=== PATIENT | female | born 1985 | race Caucasian/White ===

== ENCOUNTER 2017-02-07 07:51 | Inpatient (IN) | payer BC ==
[~2017-02-07 07:51] MED LIST: Carboprost Tromethamine 250 MCG/1 ML Amp IM PRN; Lactated Ringers 1,000 ML IV SCH; Lactated Ringers 500 ML IV ONE; Methylergonovine 0.2 MG/1 ML Amp IM PRN; Misoprostol 400 MCG (4 X 100 MCG TAB) RECTAL PRN; Ondansetron 4 MG/2 ML SDV IV PRN; Oxytocin/Normal Saline 30 UNIT/500 ML BAG IV SCH; Sodium Chloride 0.9% 10 ML Syringe FLUSH PRN
[2017-02-07] MEDS ORDERED: Misoprostol 25 MCG (1/4 of 100 MCG) Tab VAG PRN (08:00)
[2017-02-07] MEDS ORDERED: Misoprostol 50 MCG (1/2 of 100 MCG) Tab VAG PRN (09:20)
[2017-02-07] MEDS ORDERED: fentaNYL 100 MCG/2 ML SDV ITHECAL ONE (12:44)
[2017-02-07] MEDS ORDERED: Oxytocin/Normal Saline 30 UNIT/500 ML BAG IV SCH (13:30)
--- NOTE | 2017-02-07 13:30 | PCM.SN ---
- Free Text/Narrative Note: DOS: 02-07-17 Progress note: 1315 Sweetie doing well feeling cxns stronger. baby active. denies LOF or bleeding. FHTs reassuring. cervix 4cm vertex firmly applied and has come down to -1st 75%effaced cervix tightens to vertex and 4-5 with cxn BOW easily felt and AROM carried out with return of clear fluid. Will continue to monitor closely. Will start pitocin drip to optimize contraction pattern for effective labor. All questions answered. hmb
[2017-02-07] MEDS ORDERED: fentaNYL 100 MCG/2 ML SDV ONE (14:20)
[2017-02-07] MEDS ORDERED: ePHEDrine 50 MG/ML SDV ONE (14:53)
--- NOTE | 2017-02-07 15:09 | PCM.SN ---
- Free Text/Narrative Note: Called to provide labor pain relief to this patient via intrathecal. After consent signed, monitors on, proceeded. With patient in sitting position, sterile prep/drape. Skin wheal at L3-4 with 1% Lido. LP X 1 at L3-4 with 25g pencan spinal needle. positive, free flowing, clear CSF. No heme, transient paresthesia down left leg that resolved with needle reposition, but unable to aspirate CSF. After attempting to move needle to enable aspiration of CSF unsuccessfully, decided to inject because CSF was flowing well. Then injected 20mcg sufenta, 30mcg fentanyl, 6mg mpf HB spinal 0.75%marcaine, 0.4ml preservative free saline with epi wash intrathecal. Pt reported pain relief with subsequent contractions. Except for transient drop in FHT's (resoved after ephedrine obtained, but none was given), both FHT's and maternal B/P remained stable.
[2017-02-07] MEDS ORDERED: Benzocaine/Menthol 20%-0.5% Spray 56 GM Canister TOP PRN (16:16)
[2017-02-07] MEDS ORDERED: Simethicone 80 MG Tab.Chew PO PRN (16:16)
[2017-02-07] MEDS ORDERED: Zolpidem 5 MG Tab PO PRN (16:16)
--- NOTE | 2017-02-07 18:00 | PCM.DEL ---
L & D Note - General Info Date of Service: 02/07/17 (time of delivery 1557) Mother's Due Date: 02/14/17 - Delivery Note Labor: augmented by ARM, augmented by oxytocin Other Cervical Ripening Method: Cytotec 50mcg Delivery Outcome: Livebirth Infant Delivery Method: Spontaneous Vaginal Delivery Delivery Mode: Vacuum Extraction Presentation: Left Occiput Anterior (TAURUS) Nuchal Cord: Present, Reduced (X 1 loose, with hand grasped tightly around it) Prep: Povidone-Iodine (Betadine Anesthesia Type: Intrathecal Amniotic Fluid Description: Clear Episiotomy Type: None Laceration: none Placenta: intact, expressed Cord: 3 vessels Estimated Blood Loss: 150 Resuscitation Needed: No : Suctioned, Bulb Syringe, Stimulated, [place] Used (to mom skin to skin) Provider: Jessica Gonzalez Score 1 min: 8 Score 5 min: 8 Vacuum Extractor Progress Note - Alternative Labor Strategies Considered Alternative labor strategies considered:: Reports: yes Strategies considered:: Reports: Contraction intensity adequate, Position changes used to facilitate rotation & descent, Empty bladder Indications considered:: Reports: yes Indications:: Reports: Shortening of 2nd stage for maternal benefit, Suspicion of immediate or potential compromise Time out:: Reports: yes (time of informed consent 0764. [facility]) - Patient Prepared Patient prepared:: Reports: yes Informed consent:: Reports: Yes, Verbal Risks: Reports: yes Risks include:: Reports: Laceration, Shoulder dystocia, Maternal injury Anesthesia/analgesia adequate:: Reports: yes - Probability of Success High probability of success:: Reports: yes weight estimated:: Reports: AGA Patient diabetic:: Reports: no Pelvis adequate:: Reports: yes Position:: cephalic, TAURUS Asynclitic:: Reports: no Station:: +3 - Application Time Maximum application time & number of pop-offs predetermined:: Reports: yes Total application time (min): *max=20min: 1 (40secs) Number of times cup disengaged:: 0 Type of vacuum used:: Reports: Cup: Moore type Vacuum Extraction: Successful - Exit Strategy Exit strategy available:: Reports: yes and resuscitation teams readily available:: Reports: yes Consult as indicated:: not necessary - General Info Functional Status: Reports: pain controlled - Review of Systems General: Reports: No Symptoms HEENT: Reports: no symptoms Pulmonary: Reports: no symptoms Cardiovascular: Reports: No Symptoms Gastrointestinal: Reports: No symptoms Genitourinary: Reports: no symptoms Musculoskeletal: Reports: no symptoms Skin: Reports: no symptoms Neurological: Reports: No Symptoms Psychiatric: Reports: no symptoms - Patient Data Weight - most recent: 163 lb Lab Results last 24 hrs: Laboratory Results - last 24 hr 02/07/17 Range/Units 08:10 WBC 16.0 H (5.0-10.0) 10^3/uL RBC 4.06 L (4.2-5.4) 10^6/uL Hgb 12.0 (12.0-16.0) g/dL Hct 35.9 L (37.0-47.0) % MCV 88.4 (80-100) fL MCH 29.6 (27.0-34.0) pg MCHC 33.4 (33.0-35.0) g/dL Plt Count 168 (150-450) 10^3/uL Med Orders - Current: Current Medications Acetaminophen (Tylenol) 650 mg PO Q4H PRN PRN Reason: Pain/Fever Benzocaine/Menthol (Dermoplast Pain Relief Higgins) 0 gm TOP Q4H PRN PRN Reason: Perineal comfort measures Carboprost Tromethamine (Hemabate Ds) 250 mcg IM ASDIRECTED PRN PRN Reason: HEMORRHAGE Docusate Sodium (Colace) 100 mg PO BID PRN PRN Reason: Constipation Lactated Ringer's (Ringers, Lactated) 1,000 mls @ 125 mls/hr IV ASDIRECTED LIZZY Last Admin: 02/07/17 14:17 Dose: 125 mls/hr Oxytocin/Sodium Chloride (Pitocin In Ns 30 Unit/500 Ml) 30 unit in 500 mls @ 500 mls/hr IV TITRATE LIZZY PRN Reason: Protocol Oxytocin/Sodium Chloride (Pitocin In Ns 30 Unit/500 Ml) 30 unit in 500 mls @ 2 mls/hr IV TITRATE LIZZY; 2 MUNITS/MIN PRN Reason: Protocol Last Admin: 02/07/17 13:57 Dose: 2 munits/min, 2 mls/hr Ibuprofen (Motrin) 800 mg PO Q8H PRN PRN Reason: Mild Pain or Fever Lidocaine HCl (Xylocaine-Mpf 1%) 30 ml INJECT ASDIRECTED PRN PRN Reason: Perineal Repair Methylergonovine Maleate (Methergine) 0.2 mg IM ASDIRECTED PRN PRN Reason: Hemorrhage Misoprostol (Cytotec) 800 mcg RECTAL ASDIRECTED PRN PRN Reason: Hemorrhage Misoprostol (Cytotec) 50 mcg VAG Q4H PRN PRN Reason: cervical ripening Last Admin: 02/07/17 09:36 Dose: 50 mcg Ondansetron HCl (Zofran) 4 mg IV Q4H PRN PRN Reason: Nausea/Vomiting Last Admin: 02/07/17 14:10 Dose: 4 mg Prenat Multivit/Blending Machine Feeder/Iron/Folic Ac ( Plus Iron) 1 each PO DAILY LIZZY Simethicone (Simethicone) 80 mg PO Q4H PRN PRN Reason: Gas Sodium Chloride (Saline Flush) 10 ml FLUSH ASDIRECTED PRN PRN Reason: Keep Vein Open Zolpidem Tartrate (Ambien) 5 mg PO BEDTIME PRN PRN Reason: Insomnia Stop: 02/07/17 21:01 Discontinued Medications Ephedrine Sulfate (Ephedrine Sulfate) Confirm Administered Dose 50 mg .ROUTE .STK-MED ONE Stop: 02/07/17 14:54 Fentanyl (Sublimaze) Confirm Administered Dose 100 mcg .ROUTE .STK-MED ONE Stop: 02/07/17 14:21 Lactated Ringer's (Ringers, Lactated) 500 mls @ 500 mls/hr IV .BOLUS ONE Stop: 02/07/17 00:19 Last Admin: 02/07/17 13:58 Dose: 500 mls/hr Misoprostol (Cytotec) 50 mcg VAG Q4H PRN PRN Reason: cervical ripening Stop: 02/07/17 08:01 Sufentanil Citrate (Sufenta) Confirm Administered Dose 50 mcg .ROUTE .STK-MED ONE Stop: 02/07/17 14:22 - Problem List Review Problem List Initiated/Reviewed/Updated: Yes - My Orders Last 24 Hours: My Active Orders 02/06/17 23:00 Communication Order [RC] ASDIRECTED Communication Order [RC] ASDIRECTED Communication Order [RC] ASDIRECTED Communication Order [RC] ASDIRECTED Communication Order [RC] ASDIRECTED Notify Provider Vital Signs OB [RC] ASDIRECTED Notify Provider [RC] PRN Notify Provider [RC] PRN Notify Provider [RC] STAT Up ad Corazon [RC] PER UNIT ROUTINE Vaginal Exam [RC] PRN Vital Signs [RC] PER UNIT ROUTINE Acetaminophen [Tylenol] 650 mg PO Q4H PRN Sodium Chloride 0.9% [Saline Flush] 10 ml FLUSH ASDIRECTED PRN 02/06/17 23:04 Peripheral IV Care [RC] . DIRECTED 02/06/17 23:20 Carboprost Tromethamine [Hemabate DS] 250 mcg IM ASDIRECTED PRN Methylergonovine [Methergine] 0.2 mg IM ASDIRECTED PRN Misoprostol [Cytotec] 800 mcg RECTAL ASDIRECTED PRN Ondansetron [Zofran] 4 mg IV Q4H PRN Resuscitation Status Routine 02/06/17 23:21 Communication Order [RC] ASDIRECTED Notify Provider [RC] PRN 02/06/17 23:24 Pump Management, Intrathecal [RC] ASDIRECTED 02/07/17 07:00 Patient Status [ADT] Routine Lactated Ringers [Ringers, Lactated] 1,000 ml IV ASDIRECTED Oxytocin/Normal Saline [Pitocin in NS 30 UNIT/500 ML] 30 unit in 500 ml IV TITRATE Peripheral IV Insertion Adult [OM.PC] Routine 02/07/17 09:20 Misoprostol [Cytotec] 50 mcg VAG Q4H PRN 02/07/17 13:30 Oxytocin/Normal Saline [Pitocin in NS 30 UNIT/500 ML] 30 unit in 500 ml IV TITRATE 02/07/17 16:16 Consult to Support Team Assoc [CONS] Routine Benzocaine/Menthol [Dermoplast Pain Relief Higgins] See Dose Instructions TOP Q4H PRN Docusate Sodium [Colace] 100 mg PO BID PRN Ibuprofen [Motrin] 800 mg PO Q8H PRN Simethicone 80 mg PO Q4H PRN Zolpidem [Ambien] 5 mg PO BEDTIME PRN Assess Lochia [WOMSER] Per Unit Routine Assess Uterine Involution [WOMSER] Per Unit Routine Breast Pump [WOMSER] Per Unit Routine Ice Therapy [OM.PC] Per Unit Routine Perineal Care [OM.PC] Per Unit Routine Saline Lock Insert [OM.PC] Urgent Sitz Bath [OM.PC] Per Unit Routine 02/07/17 23:20 Lidocaine 1% [Xylocaine-MPF 1%] 30 ml INJECT ASDIRECTED PRN 02/07/17 Breakfast Clear Liquid Diet [DIET] 02/08/17 09:00 Vit with Ca/FA/Iron [ Plus Iron] 1 each PO DAILY 02/09/17 05:11 CBC W/O DIFF,HEMOGRAM [HEME] AM - Assessment Assessment:: see below - Plan Plan:: Assessment: 31yo WF G5 now [id number] VAVD as noted @ 1557 on 02-07-17 viable male APGARs 8 & 8 weight 3240g/7lb 2.3oz GBS neg A+ RI intact perineum no complications EBL 150cc Plan: routine posptartum cares and orders. likely home on Friday MTV to follow, he is aware. hmb
[2017-02-07] MEDS: Docusate Sodium 100 MG Cap PO PRN (19:50)
[2017-02-07] MEDS: Ibuprofen 800 MG Tab PO PRN (19:50)
[2017-02-07] MEDS ORDERED: Lidocaine 1% 30 ML SDV INJECT PRN (23:20)
[2017-02-08] MEDS: Ibuprofen 800 MG Tab PO PRN ×2 (08:18→17:21)
[2017-02-08] MEDS: Prenatal Multivitamin with Calcium/Folic Acid/Iron Tab PO SCH (08:18)
[2017-02-08] MEDS: Docusate Sodium 100 MG Cap PO PRN (08:18)
[2017-02-08] MEDS: Acetaminophen 325 MG Tab PO PRN (11:26)
--- NOTE | 2017-02-08 12:10 | PN ---
DATE: 02/08/2017 SUBJECTIVE: Mrs. Brown is doing very well today. She proceeded on yesterday to have a spontaneous vaginal delivery of a 7-pound 2-ounce baby boy named Enrike. There were no episiotomy and no lacerations. She is breast feeding at the present time. She is ambulating and doing well in general. She also does remark of some slight discomfort in the epidural sites from yesterday. Denies any headache or fever. OBJECTIVE: VITAL SIGNS: Within normal limits including being afebrile. MUSCULOSKELETAL: Her back is inspected and does not reveal any erythema. EXTREMITIES: Negative. IMPRESSION: Stable course. PLAN: She will be getting MMR vaccination today. She is going to increase her ambulation and healthy well-balanced nutritional measures are discussed with her. We will consider discharging her tomorrow and further instructions will be given at that time. [facility] /[id number]
--- NOTE | 2017-02-08 14:00 | PCM.POSTAN ---
POST ANESTHESIA ASSESSMENT - MENTAL STATUS Mental Status: alert - VITAL SIGNS Pulse Rate: 74 Resp Rate: 16 Blood Pressure: 109/54 Temperature: 37.2 C - RESPIRATORY Respiratory Status: respiratory rate WNL - CARDIOVASCULAR CV Status: pulse rate WNL - GASTROINTESTINAL GI Status: no symptoms - PAIN Free Text/Narrative:: mild c/o pain at lower back injection point - no meds required. - POST OP HYDRATION Hydration Status: adequate & stable - OBSERVATIONS Free Text/Narrative:: Except for mild c/o pain at lower back injection site, pt without c/o pain. No c/o PONV, no c/o PDPH, no paresthesia, and no other c/o. No post anesthesia complications noted.
[2017-02-08] MEDS ORDERED: Measles, Mumps & Rubella Vaccine 0.5 ML SDV SUBCUT ONE (21:58)
[2017-02-09] MEDS: Acetaminophen 325 MG Tab PO PRN (00:35)
[2017-02-09] MEDS: Ibuprofen 800 MG Tab PO PRN (06:30)
[2017-02-09 09:17] VITALS: BP 118/70
[2017-02-09] MEDS: Prenatal Multivitamin with Calcium/Folic Acid/Iron Tab PO SCH (10:11)
[2017-02-09] MEDS: Docusate Sodium 100 MG Cap PO PRN (10:11)
--- NOTE | 2017-02-10 02:48 | DISCH ---
HISTORY: This very pleasant 31-year-old, 5, para 3, the patient is ready for discharge today. Please see yesterday's progress note. She has continued to do very well today. Please see the EHR as it pertains to Dr. Gonzalez's admission history and physical and delivery note. Dr. Gonzalez has also thoroughly discussed this patient with me, and I am familiar with her somewhat from clinic. She did have a Cytotec induction beginning on 02/07/2017 and then artificial rupture of membranes. Also, Pitocin augmentation was utilized later. She continues to do very well. Her course was otherwise quite unremarkable. She is GBS negative and Rh positive. A review and double check of the [facility] EHR does reveal that she is immune to rubella and does not need MMR and this has been checked with and verified by myself and the nurses. Today, her extremity exam is negative and the fundus is firm. Her vital signs remained all within normal limits. Baby boy, Enrike, continues to do well also, although I understand he will be having a followup appointment tomorrow and also possibly a circumcision this coming Friday. The patient is breast-feeding, which is well established. At discharge, the patient is on regular diet and her condition is good. The following activity instructions were given to her. Please avoid intercourse for approximately 6 weeks. Other instructions consisted of contacting us if any questions or problems whatsoever or if any excessive or unusual vaginal bleeding or any fever or any pain or discomfort in her extremities, abdomen, pelvic area or breasts or chest, etc. This very knowledgeable registered nurse. She assures us that she will keep us informed if any questions or problems whatsoever. Discharge hemoglobin is 11.4 on 02/09/2017. FOLLOWUP APPOINTMENT: As mentioned above, the baby will have a followup appointment tomorrow on 02/10/2017 as well as possible circumcision on this coming Friday. Sweetie's appointment with Dr. Gonzalez would be approximately 6 weeks from now. DISCHARGE MEDICATIONS: Consist of either Tylenol or ibuprofen p.r.n. or Colace p.r.n. She will continue with her vitamins as well as adequate hydration and healthy well-balanced nutritional measures for breast-feeding mother. FINAL DIAGNOSIS: Term , delivered. OPERATIONS AND PROCEDURES: Vacuum-assisted vaginal delivery with no episiotomy and no lacerations by Dr. Gonzalez on 02/07/2017. She did have a viable baby boy, named Enrike, who weighed 7 pounds, 2 ounces and had good scores, please see delivery note. [facility] /[id number]
--- NOTE | 2017-02-10 07:06 | HP ---
CHIEF COMPLAINT: The patient presents for induction of labor. HISTORY OF PRESENT ILLNESS: This delightful 31-year-old white female, -0-1- 3, who presents at 39 weeks' gestation for induction of labor due to her history of shoulder dystocia with prior . The patient has had excellent care and is 39 weeks by excellent dates. Dates are by LMP, confirmed by an ultrasound at 18-1/2 weeks. She is group B strep negative. Rubella immune. Her blood type is A positive. Her labs were uneventful. Her course has been unremarkable. Please see her notes for details. PAST OBSTETRICAL HISTORY: Includes first 2 deliveries induced for post dates at nearly 42 weeks. The 2nd delivery included shoulder dystocia with a vacuum delivery. The 3rd delivery was induced at 39 weeks due to the shoulder dystocia, and was uncomplicated delivery. She has had 1 spontaneous AB. Please see her notes for full details of her OB history. CURRENT MEDICATIONS: 1. vitamins. 2. Iron. ALLERGIES: None. PAST MEDICAL HISTORY: Includes West Nile encephalitis in 2005, distant chickenpox, history of migraines. FAMILY HISTORY: Positive for cancer, cirrhosis, hypertension, rheumatoid arthritis, and high cholesterol. Please see her EPIC notes for further details. SOCIAL HISTORY: to [employer] in [facility]. 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 Both are nonsmokers and the patient has no history of alcohol or drug abuse. Has 2 daughters and 1 son. Minimal caffeine use. They were delighted to be welcoming an another child. REVIEW OF SYSTEMS: Otherwise unremarkable. She is up-to-date on her immunizations with a flu shot and Tdap, both given during this . She denies any preeclampsia symptoms. She has had no nausea or vomiting. Baby has been active. She has had a few contractions prior to arrival today. No vaginal fluid leakage or bleeding. PHYSICAL EXAMINATION: Vital Signs: On arrival was 5 foot 4 inches, weight was 163, blood pressure 116/67, pulse 92, afebrile. HEENT: Negative. Lungs: Clear. Heart: Sounds regular. Abdomen: Gravid. Extremities: She has no significant edema, just to trace in her ankles. : Cervix on examination in the clinic was 2 cm, 25% effaced, -3 station with a vertex presenting. NST, baby's baseline heart rate 125. No worrisome decelerations are seen. Acceleration seen up above the 150s and definitely meet criteria for reactive. On arrival, she was noted to be having some contractions. LABORATORY DATA: On admission CBC showed a white count 16.0, hemoglobin 12.0, and platelet count 168. IMPRESSION: 1. A 31-year-old, 5, para 3-0-1-3, at 39 weeks' gestation admitted for induction with a history of shoulder dystocia. She has an adequate pelvis, estimated AGA-sized baby and her cervix has been evaluated as outlined above and noted in the computer. 2. Group B strep negative. 3. Rubella immune. 4. A positive blood type. 5. NST reactive. 6. Admission hemoglobin 12.0 with platelet 168. PLAN: We will proceed with Cytotec 50 mcg placement as ordered. Anticipate close monitoring for her. Once the vertex is well applied to the cervix and has come down, we will consider artificial rupture of membranes as discussed with the patient. We also discussed Pitocin augmentation with her as we have used this with her previous inductions and she had fairly good results with that. She understands that this will depend completely on how she progresses in labor and how the baby tolerates management in labor. All other questions have been answered. Further management pending clinical course. [facility] /[id number]
== END 2017-02-09 12:45 | disposition home or self-care (01) | DRG 560 ==
LOC: DL.OBCHECK 07:51 → DL.OB 07:58 → OBSVTOIN 15:57
PROVIDERS: ADMIT Family Medicine; ATTEND Family Medicine
PROC: 10D07Z6 Extraction of Products of Conception, Vacuum, Via Natural or Artificial Opening (ICD-10-PCS; principal; 2017-02-07)
PROC: 10907ZC Drainage of Amniotic Fluid, Therapeutic from Products of Conception, Via Natural or Artificial Opening (ICD-10-PCS; 2017-02-07)
PROC: 3E0P7GC Introduction of Other Therapeutic Substance into Female Reproductive, Via Natural or Artificial Opening (ICD-10-PCS; 2017-02-07)
DX: O77.8 Labor and delivery complicated by other evidence of fetal stress (principal); O66.5 Attempted application of vacuum extractor and forceps; Z3A.39 39 weeks gestation of pregnancy; Z37.0 Single live birth
CPT/HCPCS: 36415; 85027; A9270-GY; J2405; J2590; J3010; J7120